=== PATIENT | female | born 1960 | race Caucasian/White ===

== ENCOUNTER 2019-10-03 14:17 | Outpatient (CLI) | END 2019-10-03 23:59 | disposition home or self-care (01) | LOC: CFH 14:17 | PROVIDERS: ATTEND Obstetrics & Gynecology Gynecology | DX: Z12.31 Encounter for screening mammogram for malignant neoplasm of breast (principal) | CPT/HCPCS: 77063; 77067 ==

== ENCOUNTER → 2021-06-29 | Outpatient (CLI) | payer OTHER | END | disposition home or self-care (01) | LOC: CFH 14:33 | PROVIDERS: ATTEND Nurse Practitioner Family | DX: Z12.31 Encounter for screening mammogram for malignant neoplasm of breast (principal) | CPT/HCPCS: 77063; 77067 ==